=== PATIENT | female | born 1960 | race Native Hawaiian/Other Pacific Islander ===

== ENCOUNTER 2017-06-25 08:56 | Outpatient (CLI) | payer BC | END 2017-06-25 10:00 | disposition home or self-care (01) | LOC: MAMMO 08:56 | DX: Z12.31 Encounter for screening mammogram for malignant neoplasm of breast (principal) ==

== ENCOUNTER 2018-08-11 08:47 | Outpatient (CLI) | payer BC | END 2018-08-11 23:16 | disposition home or self-care (01) | LOC: MAMMO 08:47 | DX: Z12.31 Encounter for screening mammogram for malignant neoplasm of breast (principal) ==

== ENCOUNTER 2020-03-14 13:30 | Outpatient (CLI) | payer BC | END 2020-03-14 21:52 | disposition home or self-care (01) | LOC: MAMMO 13:30 | DX: Z12.31 Encounter for screening mammogram for malignant neoplasm of breast (principal) ==

== ENCOUNTER 2020-07-31 08:59 | Outpatient (CLI) | payer BC, OTHER | END 2020-07-31 19:22 | disposition home or self-care (01) | LOC: INF 08:59 | PROVIDERS: ATTEND Internal Medicine | DX: Z23 Encounter for immunization (principal) | CPT/HCPCS: 96372 ==

== ENCOUNTER 2020-08-28 08:24 | Outpatient (CLI) | payer BC, OTHER | END 2020-08-28 21:38 | disposition home or self-care (01) | LOC: INF 08:24 | PROVIDERS: ATTEND Internal Medicine | DX: Z23 Encounter for immunization (principal) | CPT/HCPCS: 96372 ==

== ENCOUNTER 2020-09-09 19:34 | Emergency (ER) | payer BC ==
[~2020-09-09] VITALS: Ht 162.6 cm; Wt 76.2 kg
[2020-09-09 21:05] VITALS: BP 139/73; TEMP 98.3
== END 2020-09-09 21:05 | disposition home or self-care (01) ==
LOC: ED 19:34
DX: S61.451A Open bite of right hand, initial encounter (principal); W54.0XXA Bitten by dog, initial encounter; Y92.89 Other specified places as the place of occurrence of the external cause
CPT/HCPCS: 90471; 90715; 99283

== ENCOUNTER 2022-03-25 10:01 | Outpatient (CLI) | payer BC | END 2022-03-25 18:49 | LOC: MAMMO 10:01 | PROVIDERS: ATTEND Nurse Practitioner | DX: Z12.31 Encounter for screening mammogram for malignant neoplasm of breast (principal) ==

== ENCOUNTER 2022-05-25 14:44 | Outpatient (CLI) | payer BC | END 2022-05-25 20:03 | disposition home or self-care (01) | LOC: RAD 14:44 | PROVIDERS: ATTEND Nurse Practitioner | DX: Z13.820 Encounter for screening for osteoporosis (principal); N95.8 Other specified menopausal and perimenopausal disorders ==